=== PATIENT | female | born 1960 | race Caucasian/White ===

== ENCOUNTER 2024-10-09 14:09 | Emergency (ER) | payer MEDICARE, MEDICAID ==
[~2024-10-09] VITALS: Ht 170.2 cm; Wt 63.5 kg
[2024-10-09 14:20] VITALS: O2SAT 98
[2024-10-09] MEDS: KETOROLAC 30MG/ML VIAL IM ONE (19:03)
[2024-10-09] MEDS ORDERED: KETO10TA2 MT (20:31)
[2024-10-09 20:52] VITALS: BP 128/61; PULSE 122; RESP 16; TEMP 37.2; O2SAT 98
== END 2024-10-09 20:55 | disposition home or self-care (01) ==
LOC: ER 14:09
DX: M25.522 Pain in left elbow (principal); Z98.890 Other specified postprocedural states
CPT/HCPCS: 99283; 73080; 96372; J1885